=== PATIENT | male | born 1985 | race Caucasian/White ===

== ENCOUNTER 2017-12-27 11:05 | Emergency (ER) | payer SELFPAY ==
[2017-12-27] MEDS ORDERED: Cyclobenzaprine 10 MG Tab PO ONE (11:40)
[2017-12-27] MEDS ORDERED: Ketorolac 60 MG/2 ML SDV IM ONE (11:40)
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
== END 2017-12-27 12:20 | disposition home or self-care (01) ==
LOC: JD.ED 11:05
DX: M54.5 Low back pain (principal); F17.210 Nicotine dependence, cigarettes, uncomplicated
CPT/HCPCS: 96372; 99283; A9270; J1885

== ENCOUNTER 2019-12-04 21:58 | Emergency (ER) | payer MEDICARE, OTHER ==
--- NOTE | 2019-12-04 22:41 | EDM.PDOC ---
ED HPI GENERAL MEDICAL PROBLEM - General Chief Complaint: Respiratory Problem Stated Complaint: cough chest congestion Time Seen by Provider: 12/04/19 22:18 Source of Information: Reports: Patient History Limitations: Reports: No Limitations - History of Present Illness INITIAL COMMENTS - FREE TEXT/NARRATIVE: Patient is a 34-year-old male who presents with complaints of dry cough, nasal congestion, runny nose, sore throat that started 6 days ago. Patient states that he was in [place] November 22 and developed symptoms 3 days after returning home. He has been self quarantined since the onset of symptoms. Patient feels that the worst of the symptoms were about 2 days ago. He had some wheezing and diarrhea at that time. He feels like he has been progressively improving since that time however, symptoms of a slight cough and congestion are still present. He still has "a little bit of a sore throat in the morning ".. He has not been taking any [id number] medications. States that he is just been resting and increased fluid. He verbalized that he did contact [place] yesterday and that he was put in contact with somebody from [place] who told him that he "could not see him "because he is [employer] license and that he should come to the ER to be tested for Covid19. Patient denies any nausea or vomiting associated with this. Patient has no chronic health conditions. - Related Data Allergies Allergy/AdvReac Type Severity Reaction Status Date / Time No Known Allergies Allergy Verified 12/04/19 22:18 Home Meds: Home Meds . [No Known Home Meds] 12/04/19 [History] Past Medical History - Past Health History Medical/Surgical History: Denies Medical/Surgical History Musculoskeletal History: Reports: Back Pain, Chronic Psychiatric History: Reports: Anxiety, Depression, Other (See Below) Other Psychiatric History: not taking meds for it Social & Family History - Family History Family Medical History: Noncontributory - Tobacco Use Smoking Status *Q: Current Every Day Smoker Years of Tobacco use: 8 Packs/Tins Daily: 0.5 Used Tobacco, but Quit: Yes Month/Year Tobacco Last Used: 11/2019 - Caffeine Use Caffeine Use: Reports: Energy Drinks - Recreational Drug Use Recreational Drug Use: No ED ROS GENERAL - Review of Systems Review Of Systems: See Below Constitutional: Reports: Fatigue. Denies: Fever, Chills HEENT: Reports: Throat Pain Respiratory: Reports: Wheezing, Cough. Denies: Shortness of Breath Cardiovascular: Reports: No Symptoms Endocrine: Reports: No Symptoms GI/Abdominal: Reports: Diarrhea. Denies: Abdominal Pain, Nausea, Vomiting : Reports: No Symptoms Musculoskeletal: Reports: No Symptoms Skin: Reports: No Symptoms Neurological: Reports: No Symptoms Psychiatric: Reports: No Symptoms Hematologic/Lymphatic: Reports: No Symptoms Immunologic: Reports: No Symptoms ED EXAM, GENERAL - Physical Exam Exam: See Below Exam Limited By: No Limitations General Appearance: Alert, WD/WN, No Apparent Distress Respiratory/Chest: No Respiratory Distress, Lungs Clear, Normal Breath Sounds, No Accessory Muscle Use, Chest Non-Tender. No: Crackles, Rales, Rhonchi, Wheezing Cardiovascular: Normal Peripheral Pulses, Regular Rate, Rhythm, No Edema, No Gallop, No JVD, No Murmur, No Rub GI/Abdominal: Normal Bowel Sounds, Soft, Non-Tender, No Organomegaly, No Distention, No Abnormal Bruit, No Mass Neurological: Alert, Oriented, CN II-XII Intact, Normal Cognition, Normal Gait, Normal Reflexes, No Motor/Sensory Deficits Psychiatric: Normal Affect, Normal Mood Skin Exam: Warm, Dry, Intact, Normal Color, No Rash Course - Vital Signs Last Recorded V/S: Last Vital Signs Temp 98.6 F 12/04/19 22:11 Pulse 78 12/04/19 22:11 Resp 18 12/04/19 22:11 BP 112/76 12/04/19 22:11 Pulse Ox 99 12/04/19 22:11 - Re-Assessments/Exams Free Text/Narrative Re-Assessment/Exam: 12/04/19 22:42 On exam, lung sounds are clear. Patient is in no obvious distress. Vital signs are stable. He states that his symptoms have been improving over the last couple days. We will test him for Covid19 and notify of results when they are available. Recommended that he go home and continue to self isolate. Discharge instructions as documented. 12/06/19 15:35 Pt notified that COVID 19 results were negative. Departure - Departure Time of Disposition: 22:39 Disposition: Home, Self-Care 01 Condition: Fair Clinical Impression: Viral respiratory illness - Discharge Information *PRESCRIPTION DRUG MONITORING PROGRAM REVIEWED*: No *COPY OF PRESCRIPTION DRUG MONITORING REPORT IN PATIENT KIERAN: No Instructions: Viral Respiratory Infection, [id number] Referrals: PCP,None [Primary Care Provider] - Forms: ED Department Discharge Additional Instructions: You were seen in the emergency department today for dry cough, congestion, sore throat, and runny nose for the last 6 days. Your vital signs were normal and your oxygen saturation was good. You have been tested for Covid19. The results of this test will likely be available tomorrow afternoon. You will be notified of the results when they are available. Recommend that you continue to self quarantine. Continue to take in good amounts of fluid. You may use [id number] Tylenol or ibuprofen as needed for any discomfort. If you should experience any new or worsening symptoms, please not hesitate to return to the emergency department. Sepsis Event Note - Evaluation Sepsis Screening Result: No Definite Risk - Focused Exam Date Exam was Performed: 12/06/19 Time Exam was Performed: 15:35
== END 2019-12-04 22:48 | disposition home or self-care (01) ==
LOC: JD.ED 21:58
DX: B34.9 Viral infection, unspecified (principal); F17.210 Nicotine dependence, cigarettes, uncomplicated; Z20.828 Contact with and (suspected) exposure to other viral communicable diseases
CPT/HCPCS: 99283; U0002; 99282; U0001

== ENCOUNTER 2021-09-24 14:11 | Emergency (ER) | payer MEDICARE, OTHER ==
[2021-09-24] MEDS ORDERED: Lidocaine 1% 10 ML MDV INJECT ONE (15:17)
[2021-09-24] MEDS ORDERED: Ibuprofen 600 MG Tab PO ONE (15:54)
--- NOTE | 2021-09-24 15:58 | EDM.PDOC ---
ED HPI GENERAL MEDICAL PROBLEM - General Chief Complaint: Laceration Stated Complaint: HEAD LAC Time Seen by Provider: 09/24/21 15:01 Source of Information: Reports: Patient, RN Notes Reviewed History Limitations: Reports: No Limitations - History of Present Illness INITIAL COMMENTS - FREE TEXT/NARRATIVE: Patient is a 35-year-old male presenting to the ER for evaluation of laceration to the top of his head. Reports that he was hit in the head with the following wrench at work. He did not lose consciousness. Denies any dizziness or vomiting. Reports some light sensitivity in his right eye as well as mild headache. He is up-to-date on his tetanus vaccination. Head Pain Score (Numeric/FACES): 3 - Related Data Allergies Allergy/AdvReac Type Severity Reaction Status Date / Time No Known Allergies Allergy Verified 09/24/21 15:12 Home Meds: Home Meds . [No Known Home Meds] 12/04/19 [History] Past Medical History - Past Health History Medical/Surgical History: Denies Medical/Surgical History Musculoskeletal History: Reports: Back Pain, Chronic Psychiatric History: Reports: Anxiety, Depression, Other (See Below) Other Psychiatric History: not taking meds for it Social & Family History - Family History Family Medical History: No Pertinent Family History - Tobacco Use Tobacco Use Status *Q: Unknown Ever Used Tobacco - Caffeine Use Caffeine Use: Reports: Energy Drinks, Soda ED ROS GENERAL - Review of Systems Review Of Systems: Comprehensive ROS is negative, except as noted in HPI. ED EXAM, SKIN/RASH Exam: See Below Exam Limited By: No Limitations General Appearance: Alert, WD/WN, No Apparent Distress Eye Exam: Bilateral Eye: PERRL Head: Other (1 cm laceration to the top of the head. Small amount of active bleeding.) Respiratory/Chest: No Respiratory Distress, Lungs Clear, Normal Breath Sounds, No Accessory Muscle Use, Chest Non-Tender Cardiovascular: Normal Peripheral Pulses, Regular Rate, Rhythm, No Edema, No Gallop, No JVD, No Murmur, No Rub Neurological: Alert, Oriented, CN II-XII Intact, Normal Cognition, Normal Gait, Normal Reflexes, No Motor/Sensory Deficits Psychiatric: Normal Affect, Normal Mood ED SKIN PROCEDURES - Laceration/Wound Repair Upper Head Appearance: Superficial Skin Prep: Chlorhexidine (Hibiciens), Saline Exploration/Debridement/Repair: Wound Explored, No Foreign Material Found Closed with: [place] Lac/Wound length In cm: 1 # of Sutures: 1 Sterile Dressing Applied: None Tetanus Status Addressed: Yes Complications: No Progress/Comments: 1 cm laceration to top of head closed with a single staple. Patient will receive a dose of ibuprofen farted discharge. Neurologic exam is normal. Discussed return precautions. Stable to be taken out in 1 week. Patient verbalized understanding. Discharge instructions as document. Course - Vital Signs Last Recorded V/S: Last Vital Signs Temp 97.4 F 09/24/21 15:09 Pulse 88 09/24/21 15:09 Resp 18 09/24/21 15:09 BP 125/75 09/24/21 15:09 Pulse Ox 100 09/24/21 15:09 - Orders/Labs/Meds Meds: Medications Discontinued Medications Generic Name Dose Route Start Last Admin Trade Name Drew PRN Reason Stop Dose Admin Ibuprofen 600 mg 09/24/21 15:54 Ibuprofen 600 Mg Tab PO 09/24/21 15:55 ONETIME ONE Lidocaine HCl 10 ml 09/24/21 15:17 Lidocaine 1% 10 Ml Mdv INJECT 09/24/21 15:18 ONETIME ONE Departure - Departure Time of Disposition: 15:57 Disposition: Home, Self-Care 01 Condition: Good Clinical Impression: Laceration - Discharge Information *PRESCRIPTION DRUG MONITORING PROGRAM REVIEWED*: No *COPY OF PRESCRIPTION DRUG MONITORING REPORT IN PATIENT KIERAN: No Instructions: Laceration Care, Adult Referrals: PCP,None [Primary Care Provider] - Additional Instructions: You were seen in the emergency department today for a laceration to your head. The wound was cleansed and closed with 1 staple. This should stay intact for 7 days. After that time they may be removed in the clinic by a nurse. Keep the wound clean and dry. Wash with normal soap and water twice daily. Do not submerge the wound in water. Watch for signs of infection including increased redness, swelling, or purulent drainage. If these should occur, you should be seen either in the clinic or in the emergency department as antibiotic treatment may be needed. Take Tylenol and ibuprofen as needed for pain. He did receive a dose of ibuprofen in the ER. Apply ice over the area intermittently. If you should develop significant changes in vision, vomiting, dizziness, or any other concerning symptoms, please return to the emergency department for reevaluation. Sepsis Event Note (ED) - Evaluation Sepsis Screening Result: No Definite Risk - Focused Exam Vital Signs: Vital Signs Temp Pulse Resp BP Pulse Ox 09/24/21 15:09 97.4 F 88 18 125/75 100
== END 2021-09-24 16:30 | disposition home or self-care (01) ==
LOC: JD.ED 14:11
DX: S01.81XA Laceration without foreign body of other part of head, initial encounter (principal); W22.09XA Striking against other stationary object, initial encounter; Y99.0 Civilian activity done for income or pay
CPT/HCPCS: 12001; 99282; A9270

== ENCOUNTER 2021-10-01 11:39 | Emergency (ER) | payer OTHER | END 2021-10-01 12:35 | disposition home or self-care (01) | LOC: JD.ED 11:39 | DX: S01.81XD Laceration without foreign body of other part of head, subsequent encounter (principal); Z48.02 Encounter for removal of sutures | CPT/HCPCS: 99281 ==

== ENCOUNTER 2022-09-09 20:16 | Emergency (ER) | payer OTHER ==
[2022-09-09] MEDS ORDERED: Fluorescein 1 MG Ophth Strip EYERT ONE (21:53)
[2022-09-09] MEDS ORDERED: Proparacaine 0.5% Ophth Soln 15 ML Bottle EYERT STA (21:54)
[2022-09-09] MEDS ORDERED: Erythromycin Base 0.5% Ophth Oint 1 GM Tube EYERT STA (22:09)
== END 2022-09-09 22:26 | disposition home or self-care (01) ==
LOC: JD.ED 20:16
DX: H57.11 Ocular pain, right eye (principal); F17.210 Nicotine dependence, cigarettes, uncomplicated; Z86.16 Personal history of COVID-19
CPT/HCPCS: 99283; A9270-GY

== ENCOUNTER 2022-12-17 23:27 | Emergency (ER) | payer BC, OTHER ==
[2022-12-18] MEDS ORDERED: traMADol 50 MG Tab PO ONE (00:03)
[2022-12-18] MEDS ORDERED: Proparacaine 0.5% Ophth Soln 15 ML Bottle EYEBOTH STA (00:26)
[2022-12-18] MEDS ORDERED: Gentamicin 0.3% Ophth Soln 5 ML Bottle ONE (00:35)
== END 2022-12-18 01:15 | disposition home or self-care (01) ==
LOC: JD.ED 23:27
DX: H57.13 Ocular pain, bilateral (principal); Z86.16 Personal history of COVID-19; W89.0XXA Exposure to welding light (arc), initial encounter
CPT/HCPCS: 99283; A9270; J3490

== ENCOUNTER 2023-01-13 05:46 | Emergency (ER) | payer OTHER, BC ==
[2023-01-13] MEDS ORDERED: Proparacaine 0.5% Ophth Soln 15 ML Bottle EYELF STA (06:04)
[2023-01-13] MEDS ORDERED: Fluorescein 1 MG Ophth Strip EYELF ONE (06:05)
[2023-01-13] MEDS ORDERED: Erythromycin Base 0.5% Ophth Oint 1 GM Tube EYELF STA (06:27)
== END 2023-01-13 06:49 | disposition home or self-care (01) ==
LOC: JD.ED 05:46
DX: T15.02XA Foreign body in cornea, left eye, initial encounter (principal); Z86.16 Personal history of COVID-19; Z87.891 Personal history of nicotine dependence
CPT/HCPCS: 65222; 99283; A9270; 99282; J3490

== ENCOUNTER 2023-02-04 17:41 | Emergency (ER) | payer BC ==
[2023-02-04] MEDS ORDERED: Fluorescein 1 MG Ophth Strip EYELF ONE (17:58)
[2023-02-04] MEDS ORDERED: Proparacaine 0.5% Ophth Soln 15 ML Bottle EYEBOTH ONE (17:59)
== END 2023-02-04 19:08 | disposition home or self-care (01) ==
LOC: JD.ED 17:41
DX: T15.02XA Foreign body in cornea, left eye, initial encounter (principal); Z86.16 Personal history of COVID-19
CPT/HCPCS: 65220; 99283; J3490

== ENCOUNTER 2024-03-29 17:52 | Emergency (ER) | payer BC ==
[2024-03-29] MEDS: Proparacaine 0.5% Ophth Soln 15 ML Bottle EYELF ONE (19:20)
[2024-03-29] MEDS: Fluorescein 1 MG Ophth Strip EYELF ONE (19:20)
[2024-03-29] MEDS: Dexamethasone/Tobramycin 0.1-0.3% Ophth Susp 5 ML Bottle EYELF SCH (19:34)
== END 2024-03-29 19:37 | disposition home or self-care (01) ==
LOC: JD.ED 17:52
DX: H16.132 Photokeratitis, left eye (principal); H10.9 Unspecified conjunctivitis; Z86.16 Personal history of COVID-19; W89.0XXA Exposure to welding light (arc), initial encounter
CPT/HCPCS: 99283; A9270; J3490